=== PATIENT | male | born 1995 | race Caucasian/White ===

== ENCOUNTER 2017-03-24 21:51 | Emergency (ER) | payer SELFPAY ==
[~2017-03-24] VITALS: Ht 177.8 cm; Wt 77.1 kg
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
--- NOTE | 2017-03-24 22:13 | NUR ---
Dr Vila at bedside to eval.
[2017-03-24] MEDS ORDERED: ONDANSETRON 4 MG TAB.RAPDIS SL ONE (22:30)
[2017-03-24] MEDS ORDERED: oxyCODONE/APAP (5/325 MG) 1 UDTAB TABLET PO ONE (22:30)
[2017-03-24] MEDS ORDERED: oxyCODONE/APAP (5/325 MG) 1 UDTAB TABLET ONE (22:30)
[2017-03-24] MEDS ORDERED: CEPHALEXIN MONOHYDRATE 500 MG CAPSULE PO ONE ×2 (22:30→22:31)
[2017-03-24] MEDS ORDERED: ONDANSETRON 4 MG TAB.RAPDIS ONE (22:31)
--- NOTE | 2017-03-24 22:53 | NUR ---
Patient discharged to home in stable condition. Written and verbal after care instructions given. Patient verbalizes understanding of instruction. Patient is ambulatory with steady gait, accompanied by friends. Instructed not to drive. no further complaints.
[2017-03-24 22:55] VITALS: BP 118/71
== END 2017-03-24 22:56 | disposition home or self-care (01) ==
LOC: ER 21:53
DX: S02.2XXA Fracture of nasal bones, initial encounter for closed fracture (principal); S01.23XA Puncture wound without foreign body of nose, initial encounter; R04.0 Epistaxis; V43.62XA Car passenger injured in collision with other type car in traffic accident, initial encounter; Y93.89 Activity, other specified; Y92.89 Other specified places as the place of occurrence of the external cause; Y99.9 Unspecified external cause status
CPT/HCPCS: A4606; A6402; Q0162; Z7610